=== PATIENT | female | born 1990 | race Caucasian/White ===

== ENCOUNTER → 2021-11-09 | Outpatient (CLI) | payer OTHER | LOC: EXRD 09:58 | DX: R10.30 Lower abdominal pain, unspecified (principal) | CPT/HCPCS: 76700 ==

== ENCOUNTER → 2022-02-24 | Outpatient (CLI) | payer OTHER | LOC: NM 01-01 09:00 | DX: R10.11 Right upper quadrant pain (principal) | CPT/HCPCS: 78227; A9537; J2805 ==